=== PATIENT | male | born 1990 | race Caucasian/White ===

== ENCOUNTER 2017-09-27 10:06 | Day surgery (SDC) | payer OTHER ==
[2017-09-27] MEDS ORDERED: Morphine 2 MG/ML Syringe IVPUSH PRN (11:03)
[2017-09-27] MEDS ORDERED: Bupivacaine 0.25% 10 ML SDV INJECT ONE (11:03)
[2017-09-27] MEDS ORDERED: Acetaminophen/HYDROcodone 325-5 MG Tab PO PRN (11:03)
[2017-09-27] MEDS ORDERED: ceFAZolin 2 GM in Premix Bag 1 BAG IV ONE (11:03)
--- NOTE | 2017-09-27 11:13 | PCM.HP ---
H&P History of Present Illness - General Date of Service: 09/27/17 Admit Problem/Dx: Admission Diagnosis/Problem Admission Diagnosis/Problem Open fracture Source of Information: Old Records, Provider, RN History Limitations: Reports: No Limitations - History of Present Illness Initial Comments - Free Text/Narative: crush bending back injury to the left ring finger. Open wound seen in the ER in [place] and sent here for evaluation. Washed with betadine there. Pain medication provided there. Wrapped with coban lightly and sent to us. no uncontrolled bleeding. Discussed risks and benefits of surgery and details. All questions answered and we will proceed with ORIF of the left ring finger. Onset of Symptoms: Reports: Today, Sudden Symptom Onset Date: 09/27/17 Severity: Moderate Improves with: Reports: Immobilization Worsens with: Reports: Movement Context: Reports: Trauma - Related Data Allergies/Adverse Reactions: Allergies Allergy/AdvReac Type Severity Reaction Status Date / Time No Known Allergies Allergy Verified 09/27/17 10:43 Home Medications: Home Meds . [No Known Home Meds] 09/27/17 [History] Past Medical History - Infectious Disease History Infectious Disease History: Reports: Chicken Pox - Past Surgical History Musculoskeletal Surgical History: Reports: Arthroscopic Knee Social & Family History - Family History Family Medical History: Noncontributory - Tobacco Use Smoking Status *Q: Current Every Day Smoker Years of Tobacco use: 12 Packs/Tins Daily: 1 - Caffeine Use Caffeine Use: Reports: Coffee, Soda - Alcohol Use Days Per Week of Alcohol Use: 7 Number of Drinks Per Day: 2 Total Drinks Per Week: 14 - Recreational Drug Use Recreational Drug Use: No H&P Review of Systems - Review of Systems: Review Of Systems: See Below General: Reports: No Symptoms HEENT: Reports: No Symptoms Pulmonary: Reports: No Symptoms Cardiovascular: Reports: No Symptoms Musculoskeletal: Reports: Hand Pain Skin: Reports: Wound Neurological: Reports: No Symptoms Exam - Exam Exam: See Below - Vital Signs Vital Signs: Last Vital Signs Temp 98.1 F 09/27/17 10:38 Pulse 78 09/27/17 10:38 Resp 12 09/27/17 10:38 BP 127/52 L 09/27/17 10:38 Pulse Ox 97 09/27/17 10:38 Weight: 160 lb - Exam Quality Assessment: No: Supplemental Oxygen, DVT Prophylaxis General: Alert, Oriented HEENT: EOMI, Hearing Intact, Mucosa Moist & [place] Neck: Supple Lungs: Normal Respiratory Effort. No: Wheezing Cardiovascular: Regular Rhythm Extremities: Other (left hand ring finger with open wound and clear fracture. Taped to small and middle fingers. No acute bleeding. ) Skin: Wound (as above) Neuro Extensive - Mental Status: Alert, Oriented x3, Normal Mood/Affect, Normal Cognition Neuro Extensive - Motor, Sensory, Reflexes: CN II-XII Intact Psychiatric: Alert, Normal Affect, Normal Mood - Patient Data Imaging Impressions Last 24 hrs: xrays show a distal middle phalanx fracture of the ring finger on the left. Displaced. My read. *Q Meaningful Use (ADM) - VTE *Q VTE Criteria *Q: VTE Anticoagulation Contraindications: Med/TX Not Indicated/Need - VTE Risk Assess *Q Each Risk Factor Represents 1 Point: Minor Surgery Planned Total Score 1 Point Risk Factors: 1 Each Risk Factor Represents 2 Points: None Total Score 2 Point Risk Factors: 0 Each Risk Factor Represents 3 Points: None Total Score 3 Point Risk Factors: 0 Each Risk Factor Represents 5 Points: None Total Score 5 Point Risk Factors: 0 Venous Thromboembolism Risk Factor Score *Q: 1 - Stroke *Q Stroke Criteria *Q: - AMI *Q AMI Criteria *Q: - Problem List (1) Open fracture of finger of left hand SNOMED Code(s): 97970738 ICD Code: S62.609B - FRACTURE OF UNSP PHALANX OF UNSP FINGER, INIT FOR OPN FX Status: Acute Priority: High Current Visit: Yes Qualifiers: Encounter type: initial encounter Finger: ring finger Phalanx: middle Fracture alignment: displaced Qualified Code(s): S62.625B - Displaced fracture of middle phalanx of left ring finger, initial encounter for open fracture Problem List Initiated/Reviewed/Updated: Yes Orders Last 24hrs: Active Orders 24 hr Category Date Time Status Patient Status [ADT] Routine ADT 09/28/17 11:03 Active Verify Patient Consent Obtain [RC] ASDIRECTED Care 09/27/17 11:03 Active Nothing Per Oral Diet [DIET] Diet 09/28/17 Breakfast Active Acetaminophen/HYDROcodone [[place] 325-5 MG] Med 09/27/17 11:03 Ordered 2 tab PO Q4H PRN Bupivacaine 0.25% [Sensorcaine-MPF 0.25%] Med 09/27/17 11:03 Once 10 ml INJECT ONETIME ONE Lactated Ringers @ 125 MLS/HR(1000ml) Med 09/27/17 11:15 Ordered Lactated Ringers [Ringers, Lactated] 1,000 ml IV ASDIRECTED Morphine Med 09/27/17 11:03 Ordered 2 mg IVPUSH Q1H PRN ceFAZolin [Ancef] 2 gm Med 09/27/17 11:03 Ordered Premix Bag 1 bag IV ONETIME Resuscitation Status Routine Resus Stat 09/27/17 11:03 Ordered TO OR for ORIF of the fracture and irrigation. Meds per above and informed consent obtained.
[2017-09-27] MEDS ORDERED: Lactated Ringers 1,000 ML IV SCH (11:15)
[2017-09-27] MEDS ORDERED: Lidocaine 2% 5 ML SDV ONE (13:53)
[2017-09-27] MEDS ORDERED: Ondansetron 4 MG/2 ML SDV ONE (13:53)
[2017-09-27] MEDS ORDERED: Propofol 200 MG/20 ML SDV ONE (13:53)
[2017-09-27] MEDS ORDERED: fentaNYL 250 MCG/5 ML SDV ONE (13:53)
[2017-09-27] MEDS ORDERED: Midazolam 1 MG/ML 2 ML SDV ONE (13:53)
[2017-09-27] MEDS ORDERED: fentaNYL 100 MCG/2 ML SDV IVPUSH ONE (14:28)
[2017-09-27] MEDS ORDERED: Bupivacaine 0.25% 10 ML SDV ONE (14:33)
--- NOTE | 2017-09-27 14:49 | PCM.PREANE ---
Preanesthetic Assessment - Anesthesia/Transfusion/Family Hx Anesthesia History: Prior Anesthesia Without Reaction Family History of Anesthesia Reaction: No Transfusion History: No Prior Transfusion(s) Intubation History: Unknown - Review of Systems General: No Symptoms Pulmonary: No Symptoms Cardiovascular: No Symptoms Gastrointestinal: No Symptoms Neurological: No Symptoms Other: Reports: None - Physical Assessment O2 Sat by Pulse Oximetry: 97 Respiratory Rate: 12 Vital Signs: Last Vital Signs Temp 36.7 C 09/27/17 10:38 Pulse 78 09/27/17 10:38 Resp 12 09/27/17 10:38 BP 127/52 L 09/27/17 10:38 Pulse Ox 97 09/27/17 10:38 Weight: 72.575 kg ASA Class: 2E Mental Status: Alert & Oriented x3 Airway Class: Mallampati = 1 Dentition: Reports: Alpine(s) (plus bonded front upper 4 teeth) Thyro-Mental Finger Breadths: 3 Mouth Opening Finger Breadths: 3 ROM/Head Extension: Full Lungs: Clear to Auscultation, Normal Respiratory Effort Cardiovascular: Regular Rate, Regular Rhythm - Allergies Allergies/Adverse Reactions: Allergies Allergy/AdvReac Type Severity Reaction Status Date / Time No Known Allergies Allergy Verified 09/27/17 10:43 - Blood Blood Available: No - Anesthesia Plan Pre-Op Medication Ordered: None - Acknowledgements Anesthesia Type Planned: General Anesthesia Pt an Appropriate Candidate for the Planned Anesthesia: Yes Alternatives and Risks of Anesthesia Discussed w Pt/Guardian: Yes Pt/Guardian Understands and Agrees with Anesthesia Plan: Yes PreAnesthesia Questionnaire Musculoskeletal History: Reports: Other (See Below) (fx. left 4thfinger) - Infectious Disease History Infectious Disease History: Reports: Chicken Pox - Past Surgical History Musculoskeletal Surgical History: Reports: Arthroscopic Knee - SUBSTANCE USE Smoking Status *Q: Current Every Day Smoker (1 ppd) Tobacco Use Within Last Twelve Months: Cigarettes Days Per Week of Alcohol Use: 7 Number of Drinks Per Day: 2 Total Drinks Per Week: 14 Recreational Drug Use History: No - HOME MEDS Home Medications: Home Meds . [No Known Home Meds] 09/27/17 [History] - CURRENT (IN HOUSE) MEDS Current Meds: Current Medications Hydrocodone Bitart/Acetaminophen ([employer] 325-5 Mg) 2 tab PO Q4H PRN PRN Reason: Pain Lactated Ringer's (Ringers, Lactated) 1,000 mls @ 125 mls/hr IV ASDIRECTED NAVA Last Admin: 09/27/17 11:50 Dose: 125 mls/hr Morphine Sulfate (Morphine) 2 mg IVPUSH Q1H PRN PRN Reason: Pain Last Admin: 09/27/17 13:53 Dose: 2 mg Discontinued Medications Bupivacaine HCl (Sensorcaine-Mpf 0.25%) 10 ml INJECT ONETIME ONE Stop: 09/27/17 11:04 Bupivacaine HCl (Sensorcaine-Mpf 0.25%) Confirm Administered Dose 30 ml .ROUTE .STK-MED ONE Stop: 09/27/17 14:34 Fentanyl (Sublimaze) Confirm Administered Dose 250 mcg .ROUTE .STK-MED ONE Stop: 09/27/17 13:54 Fentanyl (Sublimaze) 50 mcg IVPUSH ONETIME ONE Stop: 09/27/17 14:29 Last Admin: 09/27/17 14:35 Dose: 50 mcg Cefazolin Sodium/Dextrose 2 gm (/ Premix) 50 mls @ 100 mls/hr IV ONETIME ONE Stop: 09/27/17 11:32 Last Admin: 09/27/17 11:18 Dose: 100 mls/hr Lidocaine (Xylocaine-Mpf 2%) Confirm Administered Dose 5 ml .ROUTE .STK-MED ONE Stop: 09/27/17 13:54 Midazolam HCl (Versed 1 Mg/Ml) Confirm Administered Dose 2 mg .ROUTE .STK-MED ONE Stop: 09/27/17 13:54 Ondansetron HCl (Zofran) Confirm Administered Dose 4 mg .ROUTE .STK-MED ONE Stop: 09/27/17 13:54 Propofol (Diprivan 20 Ml) Confirm Administered Dose 200 mg .ROUTE .STK-MED ONE Stop: 09/27/17 13:54
[2017-09-27] MEDS ORDERED: Sodium Chloride 0.9% 20 ML ONE (15:23)
[2017-09-27] MEDS ORDERED: ceFAZolin 1 GM Vial ONE (15:23)
[2017-09-27] MEDS ORDERED: fentaNYL 100 MCG/2 ML SDV IVPUSH PRN (16:44)
--- NOTE | 2017-09-27 17:41 | PCM.POSTAN ---
POST ANESTHESIA ASSESSMENT - MENTAL STATUS Mental Status: Alert, Oriented - RESPIRATORY Respiratory Status: Respiratory Rate WNL, Airway Patent, O2 Saturation Stable - CARDIOVASCULAR CV Status: Pulse Rate WNL, Blood Pressure Stable - GASTROINTESTINAL GI Status: No Symptoms - POST OP HYDRATION Hydration Status: Adequate & Stable
--- NOTE | 2017-09-27 17:50 | PCM48HPAN ---
Post Anesthesia Note - EVALUATION WITHIN 48HRS OF ANESTHETIC Vital Signs in Normal Range: Yes Patient Participated in Evaluation: Yes Respiratory Function Stable: Yes Airway Patent: Yes Cardiovascular Function Stable: Yes Hydration Status Stable: Yes Pain Control Satisfactory: Yes Nausea and Vomiting Control Satisfactory: Yes Mental Status Recovered: Yes
--- NOTE | 2017-09-27 20:14 | PCM.OPNOTE ---
- General Post-Op/Procedure Note Date of Surgery/Procedure: 09/27/17 Operative Procedure(s): open reduction and pin fixation of the left ring finger proximal phalanx fracture, fds tendon slip repair zone 2 and repair of the volar plate. Pre Op Diagnosis: open fracture of the left ring finger Post-Op Diagnosis: Same Anesthesia Technique: General LMA, Local Primary Surgeon: Leyda Gomez Manager Track: Tangela Reddy Complications: None Condition: Fair Free Text/Narrative:: Intake & Output 09/27/17 09/27/17 09/27/17 07:59 15:59 23:59 Intake Total 1700 Balance 1700
--- NOTE | 2017-10-05 20:48 | OR ---
SURGEON: DELANEY ROBLERO MD DATE OF PROCEDURE: 09/27/2017 PREOPERATIVE DIAGNOSIS: Open fracture of the left ring finger with flexor tendon and volar plate injury. POSTOPERATIVE DIAGNOSIS: Open fracture of the left ring finger with flexor tendon and volar plate injury. PROCEDURE: 1. Open reduction and pin fixation of the left ring finger proximal phalanx fracture. 2. Single slip of the flexor digitorum superficialis tendon repair in zone two. 3. Repair of the volar plate. ASSESSMENT DIRECTOR: MARICARMEN Her. Reason for seed laboratory assistant was assistance with prepping, draping, retraction, and closure. ANESTHESIA: General LMA with local. INDICATIONS: Mr. Candelario is a 27-year-old gentleman who was at work and unfortunately sustained an injury to the left ring finger proximal phalanx. Risks and benefits of open reduction and internal fixation in the operating room in addition to possible repair of other structures were discussed with him. He was in agreement to proceed. Risks were including, but not limited to, bleeding, infection, damage to underlying or overlying structures, possible need for future interventions, possible scarring. He was in agreement to proceed. He understands that given open nature, he is at higher risk of infection. PROCEDURE IN DETAIL: After informed consent was obtained and placed on the chart, the patient was brought to the operating theater in supine position. The open fracture was then copiously irrigated and washed and prepped in an appropriate fashion using a Betadine cleansing solution. Once adequately prepped and draped, 3 L bag with cysto tubing was used to copiously irrigate the open wound and the underlying bone and tissues. Once adequately irrigated with the 3 L, attention was then paid to exploration and discovery of open fracture of the proximal phalanx with sufficient bony girth for pin fixation. A single slip of the FDS tendon and the volar plate was also disrupted. Attention was first paid to reduction of the proximal phalanx fracture under fluoroscopy, and once adequately reduced, a 0.045 and 0.035 K-wire were placed across the fracture segment, was secured in place. Post reduction films were taken and appreciated to be in good position. Attention was then paid to the flexor digitorum slip, which was repaired to the periosteum in zone two and completed with a 4-0 FiberWire suture. Once adequately reapproximated with a [id number] stitch, attention was then paid to repair of the volar plate as well. A single stitch at the proximal and distal portion of this were placed to allow redraping of this over the volar joint surface. This was done with a 4-0 FiberWire. Once adequately reapproximated, the wound was again irrigated. The neurovascular bundles were appreciated to be intact and the skin was closed using a 5-0 nylon stitch in a horizontal mattress fashion. Once adequately closed, the wound was dressed with Xeroform and the patient was placed in short-arm plaster ulnar gutter splint. He tolerated this well. All counts and needles were correct at the end of the case. 0.25% Marcaine with epinephrine was used for a digital block. FOLLOWUP INSTRUCTIONS: The patient will be discharged home today and will be maintained in the splint until followup. We will give him a prescription for pain control and see him for custom splinting in approximately 1 week, sooner if any problems, questions, or concerns. He will continue on the antibiotics provided as well. MK / NATALEE /[id number]
--- NOTE | 2017-10-13 09:43 | CR ---
EXAMINATION: Left hand HISTORY: ORIF COMPARISON: 09/27/2017 TECHNIQUE: 3 views FINDINGS/IMPRESSION: Operative control films demonstrate 2 pins fixating a fracture through the dista l aspect of the proximal fourth phalanx.
== END 2017-09-27 21:15 | disposition home or self-care (01) ==
LOC: MW.ED 10:06 → MW.SDS 11:59 → MW.MS 19:19 → MW.SDS 21:15
PROVIDERS: ATTEND Plastic Surgery
DX: S62.615B Displaced fracture of proximal phalanx of left ring finger, initial encounter for open fracture (principal); F17.210 Nicotine dependence, cigarettes, uncomplicated
CPT/HCPCS: 26356; 26548; 26735; 96365; 99284; A9270; J0690; J2250; J2270; J2405; J3010; J7120; 01830; 76000; 76000-26; J2704